=== PATIENT | female | born 1955 ===

== ENCOUNTER 2019-08-26 13:36 | Emergency (ER) | payer OTHER ==
[~2019-08-26] VITALS: Ht 157.5 cm; Wt 69.4 kg
[2019-08-26] MEDS ORDERED: IBUPROFEN600 MG PO (14:13)
[2019-08-26] MEDS ORDERED: NABUMETONE750 MG PO (14:13)
== END 2019-08-26 17:25 | disposition home or self-care (01) ==
LOC: ER 13:36
DX: M54.5 Low back pain (principal)

== ENCOUNTER 2021-03-23 19:10 | Emergency (ER) | payer OTHER ==
[~2021-03-23] VITALS: Ht 157.5 cm; Wt 70.8 kg
[~2021-03-23 19:10] MED LIST: IBUPROFEN600 MG PO; NABUMETONE750 MG PO
[2021-03-23] MEDS ORDERED: ATACAND32 MG (19:24)
[2021-03-23] MEDS ORDERED: VOLTAREN100 GM (19:25)
[2021-03-23] MEDS ORDERED: CITRACAL + BON1 EACH (19:26)
[2021-03-23] MEDS ORDERED: CRESTOR5 MG (19:26)
[2021-03-23] MEDS ORDERED: KETO10TA2 PO (23:40)
[2021-03-23] MEDS ORDERED: ORPHENADRINE C100 MG PO (23:40)
[2021-03-23] MEDS ORDERED: MEDROLPACK PO (23:40)
== END 2021-03-23 23:43 | disposition home or self-care (01) ==
LOC: ER 19:10
DX: M43.17 Spondylolisthesis, lumbosacral region (principal)